=== PATIENT | female | born 1990 | race Two or more races ===

== ENCOUNTER 2019-05-23 12:53 | Emergency (ER) | payer MEDICARE ==
[~2019-05-23] VITALS: Ht 172.7 cm; Wt 60.0 kg
[2019-05-23 17:09] LABS: CLARITY URINE CLOUDY (CLEAR); COLOR URINE DARK YELLOW (YELLOW); KETONES URINE 1+ (NEGATIVE); LEUKOCYTE ESTERASE URINE TRACE (NEGATIVE); NITRITE URINE NEGATIVE (NEGATIVE); OCCULT BLOOD URINE TRACE (NEGATIVE); PROTEIN URINE NEGATIVE (NEGATIVE)
[2019-05-23 17:35] VITALS: BP 125/82
[2019-05-27 04:10] LABS: CHLAMYDIA TRACHOMATIS NAA Negative (Negative); NEISSERIA GONORRHOEAE NAA Negative (Negative)
== END 2019-05-23 18:06 | disposition home or self-care (01) ==
LOC: ER 14:11
DX: N39.0 Urinary tract infection, site not specified (principal); F12.10 Cannabis abuse, uncomplicated
CPT/HCPCS: 81003; 81025; 87210; 87491; 87591; 99283